=== PATIENT | female | born 1980 | race Caucasian/White ===

== ENCOUNTER 2025-06-08 13:13 | Outpatient (AMB) | payer MEDICARE, MEDICAID, SELFPAY ==
--- NOTE | 2025-06-08 13:32 | MHC.PC.OV ---
Vital Signs 06/08/25 13:34 Height 5 ft 7 in Weight 237 lb BMI 37.1 BP 130/70 Blood Pressure Location Lt brachial Position Sitting Pulse 91 Pulse Source Pulse Oximeter Temp 97.3 F Temp Source Temporal Artery Scan Pulse Oximetry (%) 97 Oxygen Delivery Method Room Air Intake Visit Reasons: regular visit, M[facility]IL[facility] Allergies tetracycline Allergy (Verified 06/08/25 13:36) Swelling Medication List - Last Reconciled 06/09/25 by Za Mobley PA-C clonidine HCl 0.1 mg PO DAILY PRN diphenhydramine HCl 50 mg PO QID PRN olanzapine 10 mg PO .q6hr PRN olanzapine 5 mg IM DAILY PRN pantoprazole (Protonix) 20 mg PO DAILY risperidone (Risperdal) 4 mg PO BID Tobacco use date assessed: 06/08/25 Dental Screening Dental Screen Date: 06/08/25 Did you have a dental visit in the last 12 months?: No Did you have a dental problem in the last 6 months where you did not have access to dental care?: No Was dental information given to patient?: No HPI regular visit, [facility] OILER HPI Details 44 year old female coming to the office for the first time. Presenting for a new patient visit. The patient was last seen by a provider at [facility] a few years ago. She is currently a patient at [facility]. The patient reports having the bladder removed about two years ago, though not via a surgical procedure. The patient also states the entire bowel was removed, but the patient continues to have bowel movements. The patient reports urinating liquid from the vagina. The patient believes these organ removals were performed remotely by another person using a software program. In review of the records from [facility] and speaking with staff they confirmed she does have a bladder and bowel. The patient reports having internal bleeding twice a month for the past two years, which the patient believes is causing low blood counts. The patient states the bleeding comes from the vagina, is thin, without mucus, and originates from the stomach. The patient reports being postmenopausal. 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 The patient states the disability is non-psychiatric. She is unable to provide details of the brain injury. mammogram: declines pap smear: declines [facility] Family History Father No problems noted. Mother No problems noted. Social History Housing: Assisted Living Facility Patient Tobacco Use Status: Former Tobacco user Tobacco use type: Cigarette e-Cigarette/Vaping Use: Never Used Second Hand Smoke Exposure: No service: No Current occupational status: disabled Cognitive needs: No Hearing needs: No Vision needs: No Questionnaire PHQ-9 Over the last 2 weeks, how often have you been bothered by any of the following problems? 1. Little interest or pleasure in doing things: several days 2. Feeling down, depressed, or hopeless: not at all 3. Trouble falling or staying asleep, or sleeping too much: not at all 4. Feeling tired or having little energy: not at all 5. Poor appetite or overeating: not at all 6. Feeling bad about yourself - or that you are a failure or have let yourself or your family down: not at all 7. Trouble concentrating on things, such as reading the newspaper or watching television: nearly every day 8. Moving or speaking so slowly that other people could have noticed. Or the opposite - being so fidgety or restless that you have been moving around a lot more than usual: not at all 9. Thoughts that you would be better off or of hurting yourself in some way: not at all Total score: 4 Depression Screening Interpretation: Negative Depression Screening Done: Yes Source: Developed by Drs. Villa Arzola, Bernice Pierce, Joel Hitchcock and colleagues, with an educational mariano from [employer]. Thrive Questionnaire Date Thrive assessed: 06/08/25 I am a: Patient What is your living situation today?: I do not have a steady places to live I am staying at a intermediate Within the past 12 months, did the food you bought not last and you didn't have the money to get more?: Never true Within the past 12 months, did you worry whether your food would run out before you got money to buy more?: Never true Do you have trouble paying for medicines?: No Do you have trouble getting transportation to medical appointments?: No Do you have trouble paying your heating and electricity bill?: No Do you have trouble taking care of your child, family member or friend?: No Do you have trouble with day-to-day activities such as bathing, preparing meals, shopping, managing finances, etc.?: No Are you currently unemployed and looking for a job?: No Are you interested in more education?: No Please select the resources that you would like help with: None Currently or been in a relationship where the following occur: No concerns reported THRIVE Score: 1 AUDIT C Alcohol Use Questionnaire (AUDIT-C) 1. How often do you have a drink containing alcohol?: Never Total Score: 0 JERRY-7 AMB Questionnaire JERRY-7 Date JERRY - 7 assessed: 06/08/25 Feeling nervous, anxious, or on edge: 0 = Not at all Not being able to stop or control worryin = Not at all Worrying too much about different things: 0 = Not at all Trouble relaxin = Not at all Being so restless that it is hard to sit still: 0 = Not at all Becoming easily annoyed or irritable: 0 = Not at all Feeling afraid as if something awful might happen: 0 = Not at all Total JERRY-7 score (0-4 normal; 5-9 mild; 10-14 moderate; 15-21 severe): 0 Source: Developed by Drs. Villa Arzola, Bernice Pierce, Joel Hitchcock and colleagues, with an educational mariano from [employer]. Review of Systems Const Denies body aches, Denies chills, Denies fever(s), Denies headache(s) and Denies poor appetite Eyes Reports no additional complaints ENT Denies dysphagia, Denies dizziness, Denies headache(s) and Denies odynophagia Card Denies chest pain, Denies edema, Denies lightheadedness and Denies dyspnea Resp Denies cough and Denies dyspnea GI Denies abdominal pain, Denies dysphagia, Denies nausea, Denies odynophagia and Denies vomiting Reports as per HPI and Reports abnormal vaginal bleeding Musc Reports no additional complaints and Denies abnormal gait Skin/Breast Reports system reviewed and no additional complaints, except as documented Neuro Denies abnormal gait, Denies dizziness and Denies headache(s) Psych Reports no additional complaints Physical exam (Primary Care) Vital Signs: Last Vital Signs Temp 97.3 F 06/08/25 13:34 Pulse 91 06/08/25 13:34 BP 130/70 06/08/25 13:34 Pulse Ox 97 06/08/25 13:34 Oxygen Delivery Method Room Air 06/08/25 13:34 BMI result Body Mass Index 37.1 Tobacco/Smoking Status: Tobacco use Status Tobacco use date assessed 06/08/25 06/08/25 13:41 Patient Tobacco Use Status Former Tobacco user 06/08/25 13:41 Tobacco use type Cigarette 06/08/25 13:41 e-Cigarette/Vaping Use Never Used 06/08/25 13:41 PHQ-9: PHQ-9 Score PHQ-9: Total score 4 06/09/25 08:04 Depression Screening Interpretation: Negative Thrive Assessment: Date of Thrive Assessment Date Thrive assessed 06/08/25 06/08/25 13:41 Currently or been in a relationship where the following occur: No concerns reported Const General: cooperative, healthy appearing, comfortable and no acute distress Orientation/consciousness: patient oriented x3 HENMT Head: Yes normocephalic Ears: hearing grossly normal bilaterally General nose exam: Normal external nose present Eyes General: appearance normal, both eyes and all related structures Conjunctivae: conjunctivae normal Neck Neck: Yes full ROM and Yes no lymphadenopathy Resp Effort & Inspection: normal respiratory effort Auscultation: clear to auscultation bilaterally, no crackles, no rales, no rhonchi and no wheezes Cardio Rate: regular rate Rhythm: regular rhythm Skin General skin exam: no rashes or lesions noted Neuro General: patient oriented x3 Gait exam (Neuro): Normal gait present Extrem General: Yes normal to inspection, Yes full ROM and No edema Psych Affect: normal affect Attitude: cooperative Insight: Good insight present (Psych) Judgement: Good judgement present (Psych) Coding Level of Care Code New Pt Level 4 (94192) Diagnoses GERD (gastroesophageal reflux disease) K21.9 Abnormal uterine bleeding (AUB) N93.9 Schizophrenia, paranoid type F20.0 Hypertension I10 Assessment & Plan Assessment & Plan (1) GERD (gastroesophageal reflux disease): Code(s): K21.9 - Gastro-esophageal reflux disease without esophagitis Category: Medical Plan: Avoid trigger foods such as citrus, tomato products, soda, caffeine, spicy foods and other foods that may be irritating to your stomach. Avoid laying flat 3-4 hours after eating and elevate the head of the bed 30 degrees to prevent acid from moving into the esophagus. Continue on pantoprazole (2) Abnormal uterine bleeding (AUB): Code(s): N93.9 - Abnormal uterine and vaginal bleeding, unspecified Category: Medical Plan: The patient reports being postmenopausal but experiences vaginal bleeding twice monthly. The patient believes the bleeding originates from the stomach. A referral to gynecology will be placed to investigate the source of the bleeding. Denies any pain with the bleeding. (3) Schizophrenia, paranoid type: Code(s): F20.0 - Paranoid schizophrenia Category: Medical Plan: The patient has fixed beliefs including the belief that the patient's bladder and bowels were removed remotely via software and that the patient is being intentionally harmed by an external green party. The patient is on disability for a history of brain damage, which the patient describes as non-psychiatric. Past medical records from [facility] will be requested for further clarification of the patient's history. In reviewing the medical records from [place] patient does have a history of schizophrenia in his being treated with Risperdal and olanzapine as needed. Going forward I would recommend patient present with staff from [facility] for upcoming appointments as patient does not appear to be a reliable historian. (4) Hypertension: Code(s): I10 - Essential (primary) hypertension Category: Medical Plan: Continue on current blood pressure medication. Avoid salt intake and encourage healthy diet and regular exercise. Plan This note was constructed using voice recognition software. While every effort has been made to ensure accuracy and data collection interviewer, still areas may have been included sometimes these areas may affect the content or meeting of the given symptoms. Total time spent caring for the patient today was 30 minutes. This includes time spent before the visit reviewing the chart, time spent during the visit, and time spent after the visit and documentation. Patient was informed and verbally consented to the use of an ambient scribe for clinic note documentation during this visit. Orders: Orders Complete Blood Count Auto Diff Today Z13.0 - Encounter for screening for diseases of the blood and blood-forming organs and certain disorders involving the immune mechanism Vitamin D 25-OH Total Today Z13.21 - Encounter for screening for nutritional disorder Hemoglobin A1c Today Z13.1 - Encounter for screening for diabetes mellitus Comprehensive Met. Panel Today Z00.00 - Encounter for general adult medical examination without abnormal findings TSH reflex Free T4 Today Z13.29 - Encounter for screening for other suspected endocrine disorder Vitamin B12 and Folate Today Z13.21 - Encounter for screening for nutritional disorder Lipid Panel Today Z13.220 - Encounter for screening for lipoid disorders UA CC w/rflx Micro + Cult Today R35.89 - Other polyuria Venous Lead Today Z77.011 - Contact with and (suspected) exposure to lead ECG 12 lead EKG Today Z00.00 - Encounter for general adult medical examination without abnormal findings Referrals [facility] Referral N93.9 - Abnormal uterine and vaginal bleeding, unspecified, Z12.4 - Encounter for screening for malignant neoplasm of cervix
[2025-06-08 13:34] VITALS: BP 130/70; PULSE 91; TEMP 36.3; O2SAT 97; BMI 37.1
== END 2025-06-08 14:09 | disposition home or self-care (01) ==
DX: K21.9 Gastro-esophageal reflux disease without esophagitis (principal); N93.9 Abnormal uterine and vaginal bleeding, unspecified; F20.0 Paranoid schizophrenia; I10 Essential (primary) hypertension

== ENCOUNTER → 2025-06-08 13:13 | Outpatient (BNVA) | payer MEDICAID, MEDICARE, SELFPAY | DX: K21.9 Gastro-esophageal reflux disease without esophagitis (principal); N93.9 Abnormal uterine and vaginal bleeding, unspecified; F20.0 Paranoid schizophrenia; I10 Essential (primary) hypertension | CPT/HCPCS: 99202 ==

== ENCOUNTER → 2025-06-09 08:06 | Outpatient (REF) | payer MEDICARE, SELFPAY ==
--- NOTE | 2025-06-09 08:13 | ECG_ITS ---
Test Reason : z00.00 Blood Pressure : */* mmHG Vent. Rate : 75 BPM Atrial Rate : 75 BPM P-R Int : 148 ms QRS Dur : 78 ms QT Int : 422 ms P-R-T Axes : 37 62 27 degrees QTcB Int : 471 ms Normal sinus rhythm Normal ECG No previous ECGs available Referred By: Za Mobley Electronically Signed By: Fredy Eduardo
[2025-06-09 08:26] LABS: MANUAL DIFF FLAG NO
[2025-06-09 08:40] LABS: Hematocrit 38.5 % (37.0-47.0); Hemoglobin 13.2 g/dl (12.0-16.0); Imm Gran Abs Auto 0.04 X10*3/uL (0.00-0.03); Imm Gran Pct Auto 0.4 % (0.0-0.4); Lymphocytes Absolute Auto 3.1 X10*3/uL (1.2-4.9); Mean Corpuscular HGB Conc 34.3 g/dl (31.0-35.0); Mean Corpuscular Hemoglobin 29.7 pg (27.0-33.0); Mean Corpuscular Volume 86.5 fL (80.0-98.0); NRBC Abs Auto 0.000 X10*3/uL (0.0-0.012); NRBC Pct Auto 0.0 /100WBC (0.0-0.2); Platelet Count 334 X10*3/uL (160-400); Red Blood Count 4.45 X10*6/uL (4.20-5.50); White Blood Count 9.6 X10*3/uL (4.8-10.8)
[2025-06-09 08:43] LABS: Appearance Urine Clear; Glucose Urine UA Negative (Negative); PH 5.5 (5.0-9.0); Specific Gravity - Urine 1.025 (1.005-1.025)
[2025-06-09 09:07] LABS: Alanine Aminotransferase 70 U/L (0-31); Albumin Level 4.4 g/dL (3.5-5.0); Alkaline Phosphatase 121 U/L (39-117); Anion Gap 13 (12-20); Aspartate Amino Transferase 49 U/L (5-31); Blood Urea Nitrogen 14 mg/dL (9-16); Calcium 9.0 mg/dL (8.4-10.2); Carbon Dioxide 24 mmol/L (22-29); Chloride 107 mmol/L (96-108); Cholesterol 215 mg/dL (<200); Estimated Glomerular Filt Rate > 60; HDL Cholesterol 38 mg/dL (>40); Potassium 3.6 mmol/L (3.3-5.1); Sodium 140 mmol/L (135-145); Total Protein 7.1 g/dL (6.5-8.0); Triglycerides 277 mg/dL (<150)
[2025-06-09 09:37] LABS: Folate 11.1 ng/mL (> or = 4.0); Vitamin B12 420 pg/mL (200-900)
[2025-06-09 09:59] LABS: Free T4 (Free Thyroxine) 0.86 ng/dL (0.71-1.85)
[2025-06-12 18:17] LABS: Venous Lead <1.0 mcg/dL (<3.5)
== END ==
LOC: HO.CARD 08:06
DX: Z00.00 Encounter for general adult medical examination without abnormal findings (principal); Z13.21 Encounter for screening for nutritional disorder; Z13.0 Encounter for screening for diseases of the blood and blood-forming organs and certain disorders involving the immune mechanism; Z13.1 Encounter for screening for diabetes mellitus; Z13.29 Encounter for screening for other suspected endocrine disorder; Z13.220 Encounter for screening for lipoid disorders; Z13.6 Encounter for screening for cardiovascular disorders; R35.89 Other polyuria; Z77.011 Contact with and (suspected) exposure to lead
CPT/HCPCS: 36415; 80053; 80061; 81003; 82306; 82607; 82746; 83036; 83655; 84439; 84443; 85025; 93005

== ENCOUNTER → 2025-06-09 08:13 | Outpatient (BNV) | payer MEDICARE, MEDICAID, SELFPAY | PROVIDERS: Visit Provider Internal Medicine Cardiovascular Disease | DX: Z00.00 Encounter for general adult medical examination without abnormal findings (principal) | CPT/HCPCS: 93010 ==